=== PATIENT | female | born 1945 | race Caucasian/White ===

== ENCOUNTER 2022-06-08 10:30 | Outpatient (REF) | payer MEDICARE, SELFPAY ==
--- NOTE | ~2022-06-08 | XR_ITS ---
EXAMINATION: XR ANKLE, LEFT CLINICAL INFORMATION: Strain COMPARISON: None TECHNIQUE: AP, lateral, and mortise views of the left ankle. FINDINGS: There is a transverse nondisplaced fracture of the lateral malleolus. No other acute fracture. There is soft tissue ossification inferior to the medial malleolus likely related to changes from old trauma. The ankle mortise is normal. There are calcaneal spurs. There is lateral soft tissue swelling. XR/XR ankle LT min 3V IMPRESSION: Transverse nondisplaced lateral malleolar fracture.
== END 2022-06-08 10:31 | disposition home or self-care (01) ==
LOC: HO.HMGCX 10:30
PROVIDERS: Visit Provider Physician Assistant
DX: S96.912A Strain of unspecified muscle and tendon at ankle and foot level, left foot, initial encounter (principal)
CPT/HCPCS: 73610

== ENCOUNTER 2024-05-18 07:58 | Outpatient (REF) | payer MEDICARE, SELFPAY ==
[2024-05-18 11:08] LABS: Alanine Aminotransferase 58 U/L (0-31); Albumin Level 3.9 g/dL (3.5-5.0); Alkaline Phosphatase 58 U/L (39-117); Anion Gap 14 (12-20); Aspartate Amino Transferase 45 U/L (5-31); Bilirubin Total 0.6 mg/dL (0.0-1.0); Blood Urea Nitrogen 15 mg/dL (9-16); C Reactive Protein 7.24 mg/dL (< or = 0.50); Carbon Dioxide 26 mmol/L (22-29); Chloride 106 mmol/L (96-108); Cholesterol 206 mg/dL (<200); Estimated Glomerular Filt Rate > 60; Glucose Random 102 mg/dL (60-115); Potassium 4.2 mmol/L (3.3-5.1); Sodium 142 mmol/L (135-145); Total Protein 7.4 g/dL (6.5-8.0)
[2024-05-18 11:33] LABS: Vitamin B12 371 pg/mL (200-900)
[2024-05-18 11:35] LABS: Free T4 (Free Thyroxine) 1.02 ng/dL (0.71-1.85)
== END 2024-05-18 07:59 | disposition home or self-care (01) ==
LOC: HO.HMGCLDS 07:58
PROVIDERS: PCP Internal Medicine; Visit Provider Internal Medicine
DX: I10 Essential (primary) hypertension (principal); R00.0 Tachycardia, unspecified
CPT/HCPCS: 36415; 80053; 82465; 82607; 84439; 84443; 86140

== ENCOUNTER 2024-06-01 08:08 | Outpatient (REF) | payer MEDICARE, SELFPAY ==
--- NOTE | ~2024-06-01 | US_ITS ---
EXAMINATION: US ABDOMEN COMPLETE CLINICAL INFORMATION: Elevated LFTs. COMPARISON: None available. TECHNIQUE: Real-time imaging of the abdominal viscera. FINDINGS: Exam limited due to patient's body habitus. PANCREAS: The visualized portion of the pancreas head and body are normal, portion of the pancreatic body and tail, not visualized are obscured by bowel gas. ABDOMINAL AORTA: The proximal, mid, and distal segments are normal in caliber. INFERIOR VENA CAVA: Visualized portions are normal. LIVER: The liver is normal in size. The liver contour is normal. Increased echogenicity of the liver parenchyma, this can be seen in the setting of hepatic steatosis or liver parenchymal disease. There is a liver cyst 1.3 x 1.1 x 1.4 cm and 1.3 x 1.3 x 1.7 cm with septation. No focal hepatic lesion. There is no intrahepatic biliary duct dilatation seen. GALLBLADDER: Normal. The gallbladder is physiologically distended without evidence of stones, sludge, polyps, wall thickening or pericholecystic fluid. COMMON BILE DUCT: Normal in caliber measuring 0.21 cm in diameter. RIGHT KIDNEY: No hydronephrosis. No renal calculi or focal parenchymal lesions. The kidney measures 10.3 cm in maximum dimension. LEFT KIDNEY: Normal. No hydronephrosis. No renal calculi or focal parenchymal lesions. The kidney measures 10.7 cm in maximum dimension. SPLEEN: Echogenic focus in the spleen probably calcified granuloma 0.9 x 1.1 cm. The spleen measures 10.1 cm in maximum dimension. FREE FLUID: None. US/US abdomen complete IMPRESSION: 1. Increased echogenicity of the liver parenchyma, this can be seen in the setting of hepatic steatosis or liver parenchymal disease. 2. There are 2 liver cysts, one of which is septated. Consider correlation with follow-up ultrasound in 6 months. 3. Echogenic focus in the spleen probably calcified granuloma 1.1 cm. Electronically signed by: Jonh Henao MD 06/03/2024 07:21 PM MIGEL
[2024-06-01 10:07] LABS: MANUAL DIFF FLAG NO
[2024-06-01 10:13] LABS: Basophils Absolute Auto 0.1 X10*3/uL (0.0-0.2); Basophils Percent Auto 0.6 % (0-2); Eosinophils Absolute Auto 0.2 X10*3/uL (0.0-0.4); Eosinophils Percent Auto 2.3 % (0-4); Hemoglobin 14.3 g/dl (12.0-16.0); Imm Gran Abs Auto 0.05 X10*3/uL (0.00-0.03); Imm Gran Pct Auto 0.6 % (0.0-0.4); Mean Corpuscular HGB Conc 33.3 g/dl (31.0-35.0); Mean Corpuscular Hemoglobin 35.3 pg (27.0-33.0); Mean Corpuscular Volume 106.2 fL (80.0-98.0); Mean Platelet Volume 10.1 fL (9.4-12.3); Monocytes Absolute Auto 0.8 X10*3/uL (0.1-1.2); Monocytes Percent Auto 9.3 % (2-11); Neutrophils Absolute Auto 5.3 x10*3/uL (2.0-8.3); Neutrophils Percent Auto 63.2 % (45-73); Platelet Count 252 X10*3/uL (160-400); Red Blood Count 4.05 X10*6/uL (4.20-5.50); Red Cell Distribution Width 12.8 % (11.0-16.0); White Blood Count 8.4 X10*3/uL (4.8-10.8)
[2024-06-01 10:38] LABS: Alanine Aminotransferase 82 U/L (0-31); Alkaline Phosphatase 64 U/L (39-117); Anion Gap 11 (12-20); Aspartate Amino Transferase 62 U/L (5-31); Blood Urea Nitrogen 12 mg/dL (9-16); C Reactive Protein 1.62 mg/dL (< or = 0.50); Calcium 9.4 mg/dL (8.4-10.2); Carbon Dioxide 26 mmol/L (22-29); Chloride 106 mmol/L (96-108); Estimated Glomerular Filt Rate > 60; Glucose Random 109 mg/dL (60-115); Potassium 4.1 mmol/L (3.3-5.1); Sodium 139 mmol/L (135-145); Total Protein 7.7 g/dL (6.5-8.0)
== END 2024-06-01 08:09 | disposition home or self-care (01) ==
LOC: HO.HMGCX 08:08
PROVIDERS: PCP Internal Medicine; Visit Provider Internal Medicine
DX: R74.01 Elevation of levels of liver transaminase levels (principal); Z86.73 Personal history of transient ischemic attack (TIA), and cerebral infarction without residual deficits
CPT/HCPCS: 36415; 76700; 80053; 82550; 85025; 86140

== ENCOUNTER 2024-06-22 06:52 | Outpatient (REF) | payer MEDICARE, SELFPAY ==
[2024-06-22 10:10] LABS: MANUAL DIFF FLAG NO
[2024-06-22 10:11] LABS: Basophils Percent Auto 0.7 % (0-2); Eosinophils Absolute Auto 0.2 X10*3/uL (0.0-0.4); Eosinophils Percent Auto 2.7 % (0-4); Hematocrit 42.8 % (37.0-47.0); Hemoglobin 14.4 g/dl (12.0-16.0); Imm Gran Abs Auto 0.03 X10*3/uL (0.00-0.03); Imm Gran Pct Auto 0.5 % (0.0-0.4); Lymphocytes Absolute Auto 1.8 X10*3/uL (1.2-4.9); Lymphocytes Percent Auto 31.1 % (20-40); Mean Corpuscular HGB Conc 33.6 g/dl (31.0-35.0); Mean Corpuscular Volume 104.1 fL (80.0-98.0); Mean Platelet Volume 10.3 fL (9.4-12.3); Monocytes Absolute Auto 0.5 X10*3/uL (0.1-1.2); Neutrophils Absolute Auto 3.3 x10*3/uL (2.0-8.3); Platelet Count 278 X10*3/uL (160-400); Red Blood Count 4.11 X10*6/uL (4.20-5.50); Red Cell Distribution Width 12.5 % (11.0-16.0); White Blood Count 5.9 X10*3/uL (4.8-10.8)
[2024-06-22 11:01] LABS: Cholesterol 242 mg/dL (<200); HDL Cholesterol 59 mg/dL (>40); LDL Cholesterol Calculated 154 mg/dL (<100); Triglycerides 149 mg/dL (<150)
== END 2024-06-22 06:53 | disposition home or self-care (01) ==
LOC: HO.HMGCLDS 06:52
PROVIDERS: PCP Internal Medicine; Visit Provider Internal Medicine
DX: I10 Essential (primary) hypertension (principal)
CPT/HCPCS: 36415; 80061; 85025

== ENCOUNTER 2024-09-04 09:34 | Outpatient (REF) | payer MEDICARE, SELFPAY ==
--- NOTE | ~2024-09-04 | US_ITS ---
EXAMINATION: US EXTRACRANIAL CAROTID DUPLEX, BILATERAL CLINICAL INFORMATION: Hypertension. Questionable TIA. COMPARISON: None available. TECHNIQUE: Real-time ultrasound and Doppler techniques (integrating B-mode 2-D vascular images, Doppler spectral analysis and color-flow Doppler imaging) were utilized to interrogate the extracranial carotid arteries, the vertebral arteries and proximal subclavian arteries bilaterally. The degree of stenosis is determined by criteria similar to NASCET. FINDINGS: Right Side: 1. There is noncalcified/soft atherosclerotic plaque seen in the bifurcation/proximal ICA region. 2. The common carotid artery PSV proximally is 115 cm/s and distally 69 cm/s. 3. The proximal internal carotid artery velocities are 43-89 cm/s systolic and 21 cm/s diastolic. 4. The proximal external carotid artery PSV is 83 cm/s. 5. The vertebral artery shows antegrade flow. 6. The subclavian artery waveforms are triphasic. Left Side: 1. There is no atherosclerotic plaque seen in the bifurcation/proximal ICA region. 2. The common carotid artery PSV proximally is 100 cm/s and distally 86 cm/s. 3. The proximal internal carotid artery velocities are 71-78 cm/s systolic and 22 cm/s diastolic. 4. The proximal external carotid artery PSV is 53 cm/s. 5. The vertebral artery shows antegrade flow. 6. The subclavian artery waveforms are triphasic. US/US carotid duplex BI IMPRESSION: 1. RIGHT: Noncalcified/soft plaque. 0-49% stenosis by ultrasound criteria. 2. LEFT: Normal left internal carotid artery without atherosclerotic plaque or hemodynamically significant stenosis. Electronically signed by: Joe Hopkins MD 09/04/2024 03:14 PM MIGEL
--- OUTSIDE RECORDS SUMMARY | 2024-09-04 10:18 | XMS_ITS | Clinical Summary ---
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 Role Phone Unavailable Primary Care Provider Unavailabl e Social History Tobacco Use Types Packs/Day Years Used Date Smoking Tobacco: Never Assessed Comments Unknown Sex and Gender Information Value Date Recorded Sex Assigned at Not on file Legal Sex Female 10:17 AM EST Gender Identity Not on file Sexual Orientation Not on file Plan of Treatment Health Maintenance Due Date Last Done Comments DTaP,Tdap,and Td Vaccines (1 - Tdap) 1964 Pneumococcal Vaccine: 50+ Ye ars (1 of 1 - PCV) 1996 Zoster Vaccines (1 of 2) 1996 RSV Immunization Patients 60 + Years Old (1 - 1-dose 75+ series) 2021 COVID-19 Vaccine ( - 2023-2 5 season) 2024 Influenza Vaccine (#1) 2024 HIB Vaccines Aged Out No longer eligi ble based on patient's age to complete this topic HPV Vaccines Aged Out No longer eligi ble based on patient's age to complete this topic Hepatitis A Vaccines Aged Out No long er eligible based on patient's age to complete this topic Hepatitis B Vaccines Aged Out No long er eligible based on patient's age to complete this topic IPV Vaccines Aged Out No longer eligi ble based on patient's age to complete this topic MMR Vaccines Aged Out No longer eligi ble based on patient's age to complete this topic Meningococcal ACWY Vaccine Aged Out N o longer eligible based on patient's age to complete this topic Meningococcal B Vacine Aged Out No lo nger eligible based on patient's age to complete this topic RSV Immunization Patients Un alisha 20 months Aged Out No longer eligible b ased on patient's age to complete this topic Varicella Vaccines Aged Out No longer eligible based on patient's age to complete this topic
== END 2024-09-04 09:35 | disposition home or self-care (01) ==
LOC: HO.HMGCX 09:34
PROVIDERS: PCP Internal Medicine; Visit Provider Internal Medicine
DX: I12.9 Hypertensive chronic kidney disease with stage 1 through stage 4 chronic kidney disease, or unspecified chronic kidney disease (principal); N18.9 Chronic kidney disease, unspecified; I65.21 Occlusion and stenosis of right carotid artery
CPT/HCPCS: 93880

== ENCOUNTER → 2024-09-04 09:40 | Outpatient (BNV) | payer MEDICARE, SELFPAY | PROVIDERS: PCP Internal Medicine; Visit Provider Radiology Diagnostic Radiology | DX: G45.9 Transient cerebral ischemic attack, unspecified (principal); I10 Essential (primary) hypertension | CPT/HCPCS: 93880 ==

== ENCOUNTER 2024-10-10 06:29 | Outpatient (REF) | payer MEDICARE, SELFPAY ==
[2024-10-10 11:04] LABS: Alanine Aminotransferase 58 U/L (0-31); Albumin Level 4.2 g/dL (3.5-5.0); Alkaline Phosphatase 64 U/L (39-117); Anion Gap 10 (12-20); Aspartate Amino Transferase 57 U/L (5-31); Blood Urea Nitrogen 14 mg/dL (9-16); Calcium 9.7 mg/dL (8.4-10.2); Carbon Dioxide 27 mmol/L (22-29); Chloride 109 mmol/L (96-108); Cholesterol 195 mg/dL (<200); Estimated Glomerular Filt Rate > 60; Glucose Fasting 96 mg/dL (60-99); HDL Cholesterol 72 mg/dL (>40); LDL Cholesterol Calculated 101 mg/dL (<100); Potassium 4.1 mmol/L (3.3-5.1); Sodium 142 mmol/L (135-145); Total Protein 7.5 g/dL (6.5-8.0); Triglycerides 111 mg/dL (<150)
== END 2024-10-10 06:30 | disposition home or self-care (01) ==
LOC: HO.HMGCLDS 06:29
PROVIDERS: Visit Provider Internal Medicine
DX: E78.00 Pure hypercholesterolemia, unspecified (principal); I10 Essential (primary) hypertension
CPT/HCPCS: 36415; 80053; 80061

== ENCOUNTER 2024-10-26 11:23 | Outpatient (AMB) | payer MEDICARE, SELFPAY ==
--- NOTE | 2024-10-26 11:25 | A.OFFPC_ITS ---
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 Accompanied by: Self / Same As Patient Allergies No Known Allergies Allergy (Verified 10/26/24 11:27) Tobacco use date assessed: 10/26/24 Fall risk assessment: No Falls in past year Last assessed Fall Risk: 10/26/24 Dental Screening Dental Screen Date: 10/26/24 Did you have a dental visit in the last 12 months?: Yes Did you have a dental problem in the last 6 months where you did not have access to dental care?: No HPI HPI Comments History of Present Illness Details 78 year old female with a past medical h istory of hypertension, hyperlipidemia, h/o ?TIA, PPM, fatty liver, presenting for follow up. Last saw PCP Jul CV: On amlodipine 2.5mg daily, atorvastatin 10mg daily. BP 140/80 which is a big improvement from previously. LDL improved on statin. No SEs. Did not come to the dr for almost 8 years then went to [facility] where concern for TIA, high BP and sta rted following again thereafter PPM: says replaced [address] Grullon s/p cataract surgery. Follows with Dr Yesika Saldaña 2017 ROS CONSTITUTIONAL: Denies weight loss, fever and chills. HEENT: Denies changes in vision and hearing. RESPIRATORY: Denies SOB and cough. CV: Denies palpitations and CP GI: Denies abdominal pain, nausea, vomiting and diarrhea. : Denies dysuria and urinary frequency. MSK: Denies new myalgia and joint pain. SKIN: Denies rash and pruritus. NEUROLOGICAL: Denies headache PSYCHIATRIC: Denies recent changes in mood. PHYSICAL EXAM: GENERAL: Alert and oriented x 3. NAD EYES: EOMI. Anicteric. HENT: Moist mucous membranes. No scleral icterus. No cervical lymphadenopathy. LUNGS: Clear to auscultation bilaterally. CARDIOVASCULAR: Regular rate and rhythm. soft diastolic murmur. No JVD. ABDOMEN: Soft, non-tender +bs EXTREMITIES: No edema. Non-tender. SKIN: No rashes or lesions. Warm. NEUROLOGIC: No focal neurological deficits. CN II-XII grossly intact PSYCHIATRIC: Cooperative. Appropriate mood and affect [facility] Family History Mother No problems noted. Father No problems noted. Social History Housing: Condominium Patient Tobacco Use Status: Never used Tobacco e-Cigarette/Vaping Use: Never Used service: No Current occupational status: retired Cognitive needs: No Hearing needs: Yes (bilateral hearing aids) Vision needs: Yes (reading glasses) Questionnaire PHQ-9 Over the last 2 weeks, how often have you been bothered by any of the following problems? 1. Little interest or pleasure in doing things: not at all 2. Feeling down, depressed, or hopeless: not at all 3. Trouble falling or staying asleep, or sleeping too much: not at all 4. Feeling tired or having little energy: not at all 5. Poor appetite or overeating: not at all 6. Feeling bad about yourself - or that you are a failure or have let yourself or your family down: not at all 7. Trouble concentrating on things, such as reading the newspaper or watching television: not at all 8. Moving or speaking so slowly that other people could have noticed. Or the opposite - being so fidgety or restless that you have been moving around a lot more than usual: not at all 9. Thoughts that you would be better off or of hurting yourself in some way: not at all Total score: 0 Depression Screening Interpretation: Negative Depression Screening Done: Yes 89851 - PHQ-9 Billing: Yes Source: Developed by Drs. Олег Aparicio, Teri Pacheco, Ashutosh Wright and colleagues, with an educational gi from [employer]. Thrive Questionnaire Date Thrive assessed: 10/26/24 I am a: Patient Within the past 12 months, did the food you bought not last and you didn't have the money to get more?: Never true Within the past 12 months, did you worry whether your food would run out before you got money to buy more?: Never true Do you have trouble paying for medicines?: No Do you have trouble getting transportation to medical appointments?: No Do you have trouble taking care of your child, family member or friend?: No Do you have trouble with day-to-day activities such as bathing, preparing meals, shopping, managing finances, etc.?: No Are you currently unemployed and looking for a job?: No Are you interested in more education?: No THRIVE Score: 0 AUDIT C Alcohol Use Questionnaire (AUDIT-C) 1. How often do you have a drink containing alcohol?: Monthly or less 2. How many drinks containing alcohol do you have on a typical day when you are drinking?: 1 or 2 3. How often do you have six or more drinks on one occasion?: Less than monthly Total Score: 2 RYAN-7 AMB Questionnaire RYAN-7 Date RYAN - 7 assessed: 10/26/24 Feeling nervous, anxious, or on edge: 0 = Not at all Not being able to stop or control worryin = Not at all Worrying too much about different things: 0 = Not at all Trouble relaxin = Not at all Being so restless that it is hard to sit still: 0 = Not at all Becoming easily annoyed or irritable: 0 = Not at all Feeling afraid as if something awful might happen: 0 = Not at all Total RYAN-7 score (0-4 normal; 5-9 mild; 10-14 moderate; 15-21 severe): 0 Source: Developed by Drs. Олег Aparicio, Teri Pacheco, Ashutosh Wright and colleagues, with an educational gi from [employer]. Physical exam (Primary Care) Vital Signs: Last Vital Signs Temp 97.6 F 10/26/24 11:27 Pulse 100 10/26/24 11:27 BP 140/80 H 10/26/24 11:27 Pulse Ox 96 10/26/24 11:27 Oxygen Delivery Method Room Air 10/26/24 11:27 BMI result Body Mass Index 35.8 Tobacco/Smoking Status: Tobacco use Status Tobacco use date assessed 10/26/24 10/26/24 11:28 Patient Tobacco Use Status Never used Tobacco 10/26/24 11:28 e-Cigarette/Vaping Use Never Used 10/26/24 11:28 PHQ-9: PHQ-9 Score PHQ-9: Total score 0 10/26/24 11:52 Depression Screening Interpretation: Negative Thrive Assessment: Date of Thrive Assessment Date Thrive assessed 10/26/24 10/26/24 11:28 Coding Level of Care Code New Pt Level 4 (88543) Complex EM visit Add On G2211 Diagnoses History of TIA (transient ischemic attack) Z86.73 Hyperlipidemia, unspecified hyperlipidemia type E78.5 Hyperlipidemia type: unspecified Hypertension, unspecified type I10 Hypertension type: unspecified Additional Codes PHQ-9 - 57005 - PHQ-9 Billing: Yes ([id number]) Assessment & Plan Assessment & Plan (1) History of TIA (transient ischemic attack): Code(s): Z86.73 - Personal history of transient ischemic attack (TIA), and cerebral infarction without residual deficits Category: Medical (2) Hyperlipidemia: Code(s): E78.5 - Hyperlipidemia, unspecified Category: Medical Qualifiers: Hyperlipidemia type: unspecified Qualified Code(s): E78.5 - Hyperlipidemia, unspecified (3) HTN (hypertension): Code(s): I10 - Essential (primary) hypertension Category: Medical Qualifiers: Hypertension type: unspecified Qualified Code(s): I10 - Essential (primary) hypertension Plan 78 y/o to establish care past medical, surgical, social family history reviewed Labs ordered Meds reconciled BP borderline-return in six months or sooner as needed. continue med. low salt diet. increase exercise Orders: Orders Complete Blood Count Auto Diff 6 Months E78.5 - Hyperlipidemia, unspecified, I10 - Essential (primary) hypertension, Z86.73 - Personal history of transient ischemic attack (TIA), and cerebral infarction without residual deficits Lipid Panel 6 Months E78.5 - Hyperlipidemia, unspecified, I10 - Essential (primary) hypertension, Z86.73 - Personal history of transient ischemic attack (TIA), and cerebral infarction without residual deficits Hemoglobin A1c 6 Months E78.5 - Hyperlipidemia, unspecified, I10 - Essential (primary) hypertension, Z86.73 - Personal history of transient ischemic attack (TIA), and cerebral infarction without residual deficits Vitamin B12 and Folate 6 Months E78.5 - Hyperlipidemia, unspecified, I10 - Essential (primary) hypertension, Z86.73 - Personal history of transient ischemic attack (TIA), and cerebral infarction without residual deficits Comprehensive Met. Panel 6 Months E78.5 - Hyperlipidemia, unspecified, I10 - Essential (primary) hypertension, Z86.73 - Personal history of transient ischemic attack (TIA), and cerebral infarction without residual deficits TSH reflex Free T4 6 Months E78.5 - Hyperlipidemia, unspecified, I10 - Essential (primary) hypertension, Z86.73 - Personal history of transient ischemic attack (TIA), and cerebral infarction without residual deficits
[2024-10-26 11:27] VITALS: BP 140/80; PULSE 100; TEMP 36.4; O2SAT 96; BMI 35.8
--- OUTSIDE RECORDS SUMMARY | 2024-10-26 12:23 | XMS_ITS | Clinical Summary ---
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 Name Role Phone Unavailable Primary Care Provider [...] Vaccines (1 of 2) 1996 RSV Immunization Adult Patie nts (1 - 1-dose 75+ series) 2021 COVID-19 Vaccine ( - 2023-2 5 season) 2024 Influenza Vaccine (Season Ended) 2025 HIB Vaccines Aged Out No longer eligi [...] age to complete this topic Meningococcal B Vaccine Aged Out No l onger eligible based on patient's age to complete this topic RSV Immunization Patients Un alisha 20 months Aged Out No longer eligible b ased on patient's age to complete this topic Varicella Vaccines Aged Out No longer eligible based on patient's age to complete this topic
== END 2024-10-26 12:41 | disposition home or self-care (01) ==
LOC: HO.HMCHD 11:23
PROVIDERS: PCP Internal Medicine; Visit Provider Internal Medicine
DX: Z86.73 Personal history of transient ischemic attack (TIA), and cerebral infarction without residual deficits (principal); E78.5 Hyperlipidemia, unspecified; I10 Essential (primary) hypertension

== ENCOUNTER → 2024-10-26 11:23 | Outpatient (BNVA) | payer MEDICARE, SELFPAY | PROVIDERS: PCP Internal Medicine; Visit Provider Internal Medicine | DX: I10 Essential (primary) hypertension (principal); E78.5 Hyperlipidemia, unspecified; Z86.73 Personal history of transient ischemic attack (TIA), and cerebral infarction without residual deficits | CPT/HCPCS: 96127; 99202 ==

== ENCOUNTER 2025-05-17 10:29 | Outpatient (AMB) | payer MEDICARE, SELFPAY ==
--- NOTE | 2025-05-17 10:39 | MHC.PC.OV ---
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 Accompanied by: Self / Same As Patient Allergies No Known Allergies Allergy (Verified 05/17/25 10:40) Medication List - Last Reconciled 05/17/25 by RACH Medel amlodipine 2.5 mg PO DAILY aspirin 81 mg PO DAILY atorvastatin 10 mg PO DAILY meloxicam 15 mg PO DAILY prednisolone acetate 1% drps ophthalmic (eye) valacyclovir 500 mg PO BID Tobacco use date assessed: 10/26/24 Dental Screening Dental Screen Date: 10/26/24 HPI HPI Comments History of Present Illness Details 78 year old female with a past medical history of hypertension, hyperlipidemia, h/o ?TIA, PPM, fatty liver, presenting for follow up. Saw Dr. Delgado in October CV: On amlodipine 2.5mg daily, atorvastatin 10mg daily. BP on recheck 130/78. which is a big improvement from previously. LDL improved on statin. No SEs. Did not come to the dr for almost 8 years then went to [facility] where concern for TIA, high BP and started following again thereafter PPM: says replaced [address] Grullon s/p cataract surgery. Follows with Dr Napoles Concerns: Oa right knee/pseudogout diagnosed by PATRICIA. Started on meloxicam 50 mg daily which is helping with her pain and she is also taking Tylenol Arthritis. She also received a cortisone injection. Reports that she was unable to walk without while surfing but now finds walking much more tolerable. Health maintenance: Mammo 2017, not interested in further mammograms Last colonoscopy 2023, PRN follow-up Due for DEXA scan ROS CONSTITUTIONAL: Denies weight loss, fever and chills. HEENT: Denies changes in vision and hearing. RESPIRATORY: Denies SOB and cough. CV: Denies palpitations and CP GI: Denies abdominal pain, nausea, vomiting and diarrhea. : Denies dysuria and urinary frequency. MSK: Denies new myalgia and joint pain. SKIN: Denies rash and pruritus. NEUROLOGICAL: Denies headache PSYCHIATRIC: Denies recent changes in mood. PHYSICAL EXAM: GENERAL: Alert and oriented x 3. NAD EYES: EOMI. Anicteric. HENT: Moist mucous membranes. No scleral icterus. No cervical lymphadenopathy. LUNGS: Clear to auscultation bilaterally. CARDIOVASCULAR: Regular rate and rhythm. soft diastolic murmur. No JVD. ABDOMEN: Soft, non-tender +bs EXTREMITIES: No edema. Non-tender. SKIN: No rashes or lesions. Warm. NEUROLOGIC: No focal neurological deficits. CN II-XII grossly intact PSYCHIATRIC: Cooperative. Appropriate mood and affect [facility] Medical History (Updated 05/17/25 @ 11:11 by RACH Medel) Pseudogout of right knee Osteoarthritis of right knee History of TIA (transient ischemic attack) Hyperlipidemia HTN (hypertension) Surgical History (Updated 05/17/25 @ 11:10 by RACH Medel) S/P placement of cardiac pacemaker S/P cataract extraction and insertion of intraocular lens Family History Mother No problems noted. Father No problems noted. Social History Housing: Condominium Patient Tobacco Use Status: Never used Tobacco e-Cigarette/Vaping Use: Never Used service: No Current occupational status: retired Cognitive needs: No Hearing needs: Yes (bilateral hearing aids) Vision needs: Yes (reading glasses) Questionnaire Thrive Questionnaire Date Thrive assessed: 10/26/24 RYAN-7 AMB Questionnaire RYAN-7 Date RYAN - 7 assessed: 10/26/24 Source: Developed by Drs. Олег Aparicio, Teri Pacheco, Ashutosh Wright and colleagues, with an educational gi from [employer]. Physical exam (Primary Care) Vital Signs: Last Vital Signs Temp 97.5 F 05/17/25 10:49 Pulse 115 H 05/17/25 10:49 Resp 18 05/17/25 10:49 BP 148/54 H 05/17/25 10:49 Pulse Ox 98 05/17/25 10:49 Oxygen Delivery Method Room Air 05/17/25 10:49 BMI result Body Mass Index 35.5 Tobacco/Smoking Status: Tobacco use Status Tobacco use date assessed 10/26/24 05/17/25 10:40 Patient Tobacco Use Status Never used Tobacco 05/17/25 10:40 e-Cigarette/Vaping Use Never Used 05/17/25 10:40 Thrive Assessment: Date of Thrive Assessment Date Thrive assessed 10/26/24 05/17/25 10:40 Coding Level of Care Code Est Pt Level 4 (86868) Complex EM visit Add On G2211 Diagnoses Hypertension, unspecified type I10 Hypertension type: unspecified Hyperlipidemia, unspecified hyperlipidemia type E78.5 Hyperlipidemia type: unspecified History of TIA (transient ischemic attack) Z86.73 Osteoarthritis of right knee M17.11 Pseudogout of right knee M11.261 Assessment & Plan Assessment & Plan (1) HTN (hypertension): Code(s): I10 - Essential (primary) hypertension Category: Medical Qualifiers: Hypertension type: unspecified Qualified Code(s): I10 - Essential (primary) hypertension Plan: Controlled on recheck. Continue amlodipine. Low-sodium diet (2) Hyperlipidemia: Code(s): E78.5 - Hyperlipidemia, unspecified Category: Medical Qualifiers: Hyperlipidemia type: unspecified Qualified Code(s): E78.5 - Hyperlipidemia, unspecified Plan: Lipid panel pending. Continue atorvastatin 10 mg daily, dose increase as needed. Diet low in saturated fats and highly processed foods. Recommend regular weight-bearing exercise for at least 150 minutes weekly (3) History of TIA (transient ischemic attack): Code(s): Z86.73 - Personal history of transient ischemic attack (TIA), and cerebral infarction without residual deficits Category: Medical Plan: Continue aspirin, atorvastatin (4) Osteoarthritis of right knee: Comment: [facility] Code(s): M17.11 - Unilateral primary osteoarthritis, right knee Category: Medical Plan: Much improved with cortisone injection. Continue meloxicam as well as weight-bearing exercise as weight loss will assist with pain associated with osteoarthritis. Continue following with [facility] (5) Pseudogout of right knee: Code(s): M11.261 - Other chondrocalcinosis, right knee Category: Medical Plan: Continue NSAID Plan Follow-up in the office in 6 months, labs as ordered DEXA scan ordered and she is overdue. Calcium and vitamin-D. Also recommend weight-bearing exercise as above. Orders: Orders XR DEXA axial skeleton Today E55.9 - Vitamin D deficiency, unspecified, M89.8X9 - Other specified disorders of bone, unspecified site, N95.9 - Unspecified menopausal and perimenopausal disorder
[2025-05-17 10:49] VITALS: BP 148/54; PULSE 115; RESP 18; TEMP 36.4; O2SAT 98; BMI 35.5
[2025-05-17 11:08] VITALS: BP 130/78; PULSE 92
--- OUTSIDE RECORDS SUMMARY | 2025-05-17 11:52 | XMS_ITS | Data Portability ---
Author Organization [facility], [facility] PT Address [address] [place] [address] Assessment No assessment recorded. Plan of Treatment Reminders Order Date Submit Date Provider Last Modified By Organization Details Last Modified Time Details Appointments None recorded. Lab None recorded. Referral None recorded. Procedures None recorded. Surgeries None recorded. Imaging XR, knee, 4 or more view - 5. RT Knee, 4v 2024 025 [email or web address] [facility], [address] [place] [address] [address], [place], [address], 5 14:42:27 Medication Orders meloxicam [address] tablet [address] [facility] ([place], [place]Pharmacy #[id number], [address] [facility], [place], [address], 5 15:42:16 Patient TargetsNo targets recorded. Patient InstructionsNo instructions recorded. Reason for Referral None Reported. Results Created Date Observation Date Name Description Value Unit Range Abnormal Flag Note LastModifiedBy Organization Detail LastModifiedTime 05/07/2005/07/2025 XR, knee, 4 or more view [email or web address] ?Encry pted=s hAaTro YD8dLq bEUv6g %2BXZw aYqtaq 0bqfl% 2Fg9IQ a4ajBk vP9nXo QUaueC m3YtLR FvZlgJ JJ8mAn HZtai3 5q8411 AC0KlY nyCV6K kKiQtr MwF INTERFACE [facility] [address] [facility] [address], [place], [address], 05/07/2025 13:43:41 05/07/2005/07/2025 XR, knee, 4 or more view [email or web address] ?Encry pted=s hAaTro YD8dLq bEUv6g %2BXZw aYqtaq 0bqfl% 2Fg9IQ a4ajBk vP9nXo QUaueC m3YtLR FvZlgJ JJ8mAn HZtai3 3o9410 AC0KlY nyCV6K kKiQtr MwF INTERFACE [facility] [address] [facility] [address], [place], [address], 05/07/2025 13:43:42 Result Notes Documentation Provider Name and Address Organization Details Recorded Time Xr, Knee, 4 Or More View : [email or web address] Encrypted=gkWjDxwGS3mPynK Uv6g%3KANxlXyhaw9rooo%2Fg 5GHa3nqSztJ2aTdNYxbyFx2Qw DNOcUdsIUD8kWsBZciv58u689 9FR3RhBvhEA2IbJnOhcAsS Not Available [facility] 05/07/2025 13:43: 41 Xr, Knee, 4 Or More View : [email or web address] Encrypted=igEdAytSG6rIinV Uv6g%1CNQzfRkdym6cssl%2Fg 7BIi2afRnsZ9nAlTJjldUz5Jh DKXkDahHMF2uMcPOvmw78o801 4DE2JxSkdEE9RrXkVdcPzL Not Available [facility] 05/07/2025 13:43: 43 Problems Name Problem SNOMED Code Status Onset Date Resolution Date Notes Provider Name and Address Organization Details Recorded Time Pain of right knee region 995678061046268 Active 2024 EVELYNE hughes [place] - [facility] 11:35:54 Problem Notes None recorded. Procedures Surgical History Date Name Laterality Status Provider Name and Address Organization Details Recorded Time 05/07/2025 Sports Knee 4&1 completed Ty Braun PA-C [address], [place], [address], [facility] 05/07/2025 15:24:10 Imaging Results None recorded. Procedure Notes None recorded. Medical Equipment None Reported. Medications Name Sig Start Date Stop Date Status Note LastModified by Organization Details LastModified Time atorvastati n 10 mg tablet TAKE 1 TABLET BY MOUTH EVERY DAY active Not Available Not Available No t Available azithromyci n 250 mg tablet TAKE 2 TABLETS BY MOUTH TODAY, THEN TAKE 1 TABLET DAILY FOR 4 DAYS DIRECTED 05/07 completed Not Available Not Available Not Available meloxicam 15 mg tablet Take 1 tablet every day by oral route after meal(s) for 30 days. 2024 active Not Available Not Available Not Avai lable amlodipine 2.5 mg tablet TAKE 1 TABLET BY MOUTH EVERY DAY active Not Available Not Available No t Available clopidogrel 75 mg tablet TAKE 1 TABLET BY MOUTH EVERY DAY active Not Available Not Available No t Available valacyclovi r 500 mg tablet TAKE 1 TABLET BY MOUTH TWICE A DAY active Not Available Not Available No t Available aspirin 81 mg tablet,herbert yed release TAKE 1 TABLET BY MOUTH EVERY DAY active Not Available Not Available No t Available prednisolon e acetate 1 % eye drops,suspe nsion PLACE 1 DROP INTO LEFT EYE ONCE A DAY. DX B00.52 active Not Available Not Available No t Available neomycin-po lymyxin-dex ameth 3.5 mg/mL-10,00 0 unit/mL-0.1 % eye drops INSTILL ONE DROP INTO THE RIGHT EYE THREE TIMES DAILY FOR 7 DAYS THEN STOP, SHAKE 05/07 completed Not Available Not Available Not Available neomycin 3.5 mg/g-polymy geraldo B 10,000 unit/g-dexa meth 0.1 % eye oint APPLY A PEA-SIZED AMOUNT TO THE AFFECTED AREA AT BEDTIME FOR ONE WEEK. 05/07 completed Not Available Not Available Not Available Vitals Date Recorded Body height Provider Name an d Address Organization Details Last Updated DateTime 05/07/2025 162.56 cm EVELYNE Grant [facility] 05/07/2025 13:35:11 Social History None recorded. Functional Status None recorded. Mental Status None recorded. Family History Nothing Reported. Medical History No medical history recorded. Gynecological HistoryNo gynecological history recorded. 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 624549723 M11.861 [id number] Health Concerns Section Related Observation LastModified by Organization Detai ls LastModified Time None Recorded Concern Status LastModified by Organization Details LastModified Time None Recorded Advance Directives Directive None Recorded Payers Insurance Date Sequence Insurance Name Policy Number Policy Tobias Covered Member ID Tobias Member ID Guarantor Name 05/07/2025 1 [employer] - MEDICARE ADVANTAGE PLAN (MEDICARE REPLACEMENT HMO) [id number] 04 Izabella Fowler [id number] Izabella Fowler Notes Date Note Type Note Provider Name and Address Organization Details Recorded Time 05/07/2025 text/html ROS as noted in the HPI I am seeing the patient today under the supervision of Dr. Rodriguez who was available but who did not see the patient. HPI:Patient is a 79-year-old female who presents to the urgent care clinic today with complaint of right knee pain. Patient states that she had a flareup of right knee pain about a month ago without any specific inciting events or injuries. This last Tuesday patient developed significant increased pain in her knee without any injuries. She locates the pain to be primarily in the medial aspect of her knee. Has been utilizing Aleve as well as Tylenol on an as-needed basis. Denies any catching or locking. Has not had any difficulties with her knee in the past. Past family, medical, social history and review of systems has been reviewed, updated and is located in the patient s chart. Examination: Well-appearing 79-year-old female in no acute distress. Alert and oriented x 3. Ambulates with an antalgic gait. Examination of the right knee reveals no erythema, warmth, ecchymosis. Small joint effusion noted. Tenderness to palpation present over the medial joint line. No lateral joint line tenderness. Range of motion of the knee from 0-120 degrees. Mild retropatellar crepitance noted. Mild laxity with valgus stress testing. No laxity with varus stress testing. Knee strength 5/5 against resistance with flexion and extension. Negative Bryon test. Negative Saloni's maneuver. Calf soft and nontender. 4 views of the right knee obtained and independently reviewed in the office today reveals joint space narrowing of the medial joint compartment with evidence of subchondral sclerosis and osteophyte formation. Chondrocalcinosis noted within the medial and lateral joint compartments. Narrowing of the patellofemoral joint. No fracture. Impression:Right knee osteoarthritis, CPPD Plan:We discussed the role of conservative management including medications, physical therapy, injection and bracing. At this point the patient was to proceed with injection. Please see procedure note. Patient was also given prescription for meloxicam 15 mg which she will utilize once daily in the morning with food avoid upset stomach. Advised not to utilize any other anti-inflammatory medications while she is taking this to avoid medication interaction as well as kidney injury. She can utilize Tylenol with it as needed. Discussed she can have these injections up to every 3 months as needed. She will continue to monitor symptoms and follow-up as needed. At this time all patient questions and concerns answered and addressed today. Ty Braun PA-C [facility] [address], [place], [address], [facility] - [facility] 05/07/2025 15:42:23 OBGyn Episode No OBEpisode recorded.
--- OUTSIDE RECORDS SUMMARY | 2025-05-17 11:52 | XMS_ITS | Clinical Summary ---
Author Organization [facility] ity Address [address] [place] [address] Care Team Providers Care Physics And Astronomy Professor Name Role Phone Unavailable Primary Care Provider [...] nts (1 - 1-dose 75+ series) 2021 Depression Screening 07/18/2024 COVID-19 Vaccine (1 - 2023-2 5 season) 2025 Influenza Vaccine (#1) 2025 HIB Vaccines Aged Out No longer [...]
--- OUTSIDE RECORDS SUMMARY | 2025-05-17 11:52 | XMS_ITS | Patient Health Record ---
Author Organization [facility] Address [address] [place] [address] Care Team Providers Care Chicken Hatchery Helper Name Role Phone Jean Claude Rangel Jr Reason For Referral No Information Plan Of Treatment No Information
== END 2025-05-17 11:09 | disposition home or self-care (01) ==
PROVIDERS: PCP Physician Assistant; Visit Provider Physician Assistant
DX: I10 Essential (primary) hypertension (principal); E78.5 Hyperlipidemia, unspecified; Z86.73 Personal history of transient ischemic attack (TIA), and cerebral infarction without residual deficits; M17.11 Unilateral primary osteoarthritis, right knee; M11.261 Other chondrocalcinosis, right knee

== ENCOUNTER → 2025-05-17 10:29 | Outpatient (BNVA) | payer MEDICARE, SELFPAY | PROVIDERS: PCP Internal Medicine; Visit Provider Physician Assistant | DX: I10 Essential (primary) hypertension (principal); E78.5 Hyperlipidemia, unspecified; M17.11 Unilateral primary osteoarthritis, right knee; M11.261 Other chondrocalcinosis, right knee; Z86.73 Personal history of transient ischemic attack (TIA), and cerebral infarction without residual deficits | CPT/HCPCS: 99212 ==

== ENCOUNTER 2025-05-24 10:36 | Outpatient (REF) | payer MEDICARE, SELFPAY ==
--- OUTSIDE RECORDS SUMMARY | 2025-05-24 12:32 | XMS_ITS | Clinical Summary ---
Author Organization [facility] [place] [facility] ity Address [address] [place] [address] Care Team Providers Care Cleaning Maid Name Role Phone Unavailable Primary Care Provider [...]
--- OUTSIDE RECORDS SUMMARY | 2025-05-24 12:33 | XMS_ITS | Data Portability ---
Author Organization [facility], [facility] Address [address] [place] [address] Assessment No assessment recorded. Plan of Treatment Reminders Order Date Submit Date Provider Last Modified By Organization Details Last Modified Time Details Appointments None recorded. Lab None recorded. Referral None recorded. Procedures None recorded. Surgeries None recorded. Imaging XR, knee, 4 or more view - 5. RT Knee, 4v 2024 025 [email or web address] [facility], [address] [place] [address] [address], [place], [address], 5 14:42:27 Medication Orders meloxicam [address] tablet [address] [facility]/Pharmacy #[id number], [address] [facility], [place], [address], 5 15:42:16 Patient TargetsNo targets recorded. Patient InstructionsNo instructions recorded. Reason for Referral None Reported. Results Created Date Observation Date Name Description Value Unit Range Abnormal Flag Note LastModifiedBy Organization Detail LastModifiedTime 05/07/2005/07/2025 XR, knee, 4 or more view [email or web address] ?Encry pted=s hAaTro YD8dLq bEUv6g %2BXZw aYqtaq 0bqfl% 2Fg9IQ a4ajBk vP9nXo QUaueC m3YtLR FvZlgJ JJ8mAn HZtai3 7v3634 AC0KlY nyCV6K kKiQtr MwF INTERFACE [facility] [address] [facility] [address], [place], [address], 05/07/2025 13:43:41 05/07/2005/07/2025 XR, knee, 4 or more view [email or web address] ?Encry pted=s hAaTro YD8dLq bEUv6g %2BXZw aYqtaq 0bqfl% 2Fg9IQ a4ajBk vP9nXo QUaueC m3YtLR FvZlgJ JJ8mAn HZtai3 5v4199 AC0KlY nyCV6K kKiQtr MwF [facility] [address] [facility] [address], [place], [address], 05/07/2025 13:43:42 Result Notes Documentation Provider Name and Address Organization Details Recorded Time Xr, Knee, 4 Or More View : [email or web address] Encrypted=xqIyBojVK4iDoqG Uv6g%3DNRrgAvswj6xuqz%2Fg 7ZIh2xuVxyB5fZhBWkjgIy1Mq QBGlSysTYD7aNhSViez72h334 0NI7MfHhvPO1BsMpPdxEjP Not Available [facility] 05/07/2025 13:43: 41 Xr, Knee, 4 Or More View : [email or web address] Encrypted=rrZxZivWX9yOogD Uv6g%1QATbdZdpgn0peig%2Fg 2HVj3bfXhpE0yNpBGsloPg5Tt AMKxDgkJNT5zTmKNgxp89u432 3PS7NhJulOB1UmYcDnbRbI Not Available [facility] 05/07/2025 13:43: 43 Problems Name Problem SNOMED Code Status Onset Date Resolution Date Notes Provider Name and Address Organization Details Recorded Time Pain of right knee region [id number] Active 2024 EVELYNE hughes [place] - [facility] 11:35:54 Problem Notes None recorded. Procedures Surgical History Date Name Laterality Status Provider Name and Address Organization Details Recorded Time 05/07/2025 Sports Knee 4&1 completed Ty Braun PA-C [address], [place], [address], [facility] 05/07/2025 15:24:10 Imaging Results [...] Updated DateTime 05/07/2025 162.56 cm EVELYNE Grant [facility] 05/07/2025 13:35:11 Social [...] ICD10 Code Diagnosis IMO Codes Diagnosis Note [id number] Ty Braun PA-C [facility] [place] [address] [place] [address] 05/07/2025 13:05:47 05/21/2025 08:30:16 Pain of right knee region 3814839489 78895 M25.561 93401325 Osteoarthr itis of right knee joint 7634205096 88742 M17.11 1960958 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 Ty Braun PA-C [facility] [address], [place], [address], [facility] - [facility] 05/07/2025 15:42:23 OBGyn Episode No OBEpisode recorded.
--- OUTSIDE RECORDS SUMMARY | 2025-05-24 12:33 | XMS_ITS | Patient Health Record ---
Author Organization [facility] Address [address] [place] [address] Care Team Providers Care Wool Sorter Name Role Phone Jean Claude Rangel Jr Reason For Referral No Information Plan Of Treatment No Information
[2025-05-24 13:16] LABS: MANUAL DIFF FLAG NO
[2025-05-24 13:40] LABS: Hematocrit 41.5 % (37.0-47.0); Hemoglobin 13.9 g/dl (12.0-16.0); Imm Gran Abs Auto 0.02 X10*3/uL (0.00-0.03); Imm Gran Pct Auto 0.3 % (0.0-0.4); Lymphocytes Absolute Auto 2.0 X10*3/uL (1.2-4.9); Mean Corpuscular HGB Conc 33.5 g/dl (31.0-35.0); Mean Corpuscular Hemoglobin 35.0 pg (27.0-33.0); Mean Corpuscular Volume 104.5 fL (80.0-98.0); NRBC Abs Auto 0.000 X10*3/uL (0.0-0.012); NRBC Pct Auto 0.0 /100WBC (0.0-0.2); Platelet Count 267 X10*3/uL (160-400); Red Blood Count 3.97 X10*6/uL (4.20-5.50); White Blood Count 7.3 X10*3/uL (4.8-10.8)
[2025-05-24 14:06] LABS: Alanine Aminotransferase 72 U/L (0-31); Albumin Level 4.5 g/dL (3.5-5.0); Alkaline Phosphatase 72 U/L (39-117); Anion Gap 13 (12-20); Aspartate Amino Transferase 53 U/L (5-31); Blood Urea Nitrogen 17 mg/dL (9-16); Calcium 9.6 mg/dL (8.4-10.2); Carbon Dioxide 26 mmol/L (22-29); Chloride 106 mmol/L (96-108); Cholesterol 184 mg/dL (<200); Estimated Glomerular Filt Rate > 60; HDL Cholesterol 67 mg/dL (>40); Potassium 4.0 mmol/L (3.3-5.1); Sodium 141 mmol/L (135-145); Total Protein 7.5 g/dL (6.5-8.0); Triglycerides 193 mg/dL (<150)
[2025-05-24 14:17] LABS: Folate 14.5 ng/mL (> or = 4.0); Vitamin B12 381 pg/mL (200-900)
== END 2025-05-24 10:37 | disposition home or self-care (01) ==
LOC: HO.HMGCLDS 10:36
PROVIDERS: PCP Internal Medicine; Visit Provider Internal Medicine
DX: Z13.1 Encounter for screening for diabetes mellitus (principal); I10 Essential (primary) hypertension; E78.5 Hyperlipidemia, unspecified; Z86.73 Personal history of transient ischemic attack (TIA), and cerebral infarction without residual deficits
CPT/HCPCS: 36415; 80053; 80061; 82607; 82746; 83036; 84443; 85025